=== PATIENT | female | born 1990 | race Caucasian/White ===

== ENCOUNTER 2020-08-11 15:25 | Emergency (ER) | payer OTHER ==
--- NOTE | 2020-08-11 16:55 | ER Document Report ---
ED Medical Screen (RME) - General Chief Complaint: Leg Pain Stated Complaint: LEFT LEG PAIN Time Seen by Provider: 08/11/20 16:46 - HPI Notes: 08/11/20 16:53 30-year-old female with a medical history of at least 7 pulmonary embolisms in her right lung and too many to count in her left due to having lupus anticoagulant disorder as well as multiple DVTs presents to the emergency room for left lower leg swelling and pain after she was on a 12-hour car ride 6 days ago and ran out of her Lovenox 4 days ago as well as mild shortness of breath. Patient's menstrual cycle started today. Patient usually injects herself of Lovenox daily but ran out 4 days ago. She is visiting from [facility]. Denies any chest pain, nausea, vomiting, diarrhea. I have greeted and performed a rapid initial assessment of this patient. A comp rehensive ED assessment and evaluation of the patient, analysis of test results and completion of the medical decision making process will be conducted by additional ED providers. PHYSICAL EXAMINATION: GENERAL: Well-appearing, well-nourished and in no acute distress. CV: s1, s2 regular LUNGS: No respiratory distress Musculoskeletal: Normal range of motion NEUROLOGICAL: Normal speech, normal gait. SKIN: Warm, Dry, normal turgor, no rashes or lesions noted. Slight swelling to left lower extremity, distal pulses +2 bilaterally equally The patient was evaluated during a global COVID-19 pandemic and that diagnosis was suspected/considered upon their initial presentation. Their evaluation, treatment and testing was consistent with current guidelines for patients who present with complaints or symptoms and may be related to COVID-19. 08/11/20 16:54 - Related Data Allergies/Adverse Reactions: sulfamethoxazole [From Bactrim] Allergy (Intermediate, Verified 08/11/20 16:45) Facial swelling trimethoprim [From Bactrim] Allergy (Intermediate, Verified 08/11/20 16:45) Facial swelling Physical Exam - Vital signs Vitals: Temp Pulse Resp BP Pulse Ox 98.2 F 62 16 127/74 H 100 08/11/20 16:33 08/11/20 16:33 08/11/20 16:33 08/11/20 16:33 08/11/20 16:33 Course - Vital Signs Vital signs: Temp Pulse Resp BP Pulse Ox 98.2 F 62 16 127/74 H 100 12/29/20 16:33 08/11/20 16:33 08/11/20 16:33 08/11/20 16:33 08/11/20 16:33
[2020-08-11 18:14] LABS: ABSOLUTE EOSINOPHILS # (AUTO) 0.1 10^3/uL (0.0-0.6); ABSOLUTE MONOCYTES (AUTO) 0.4 10^3/uL (0.1-1.4); BASOPHILS % (AUTO) 0.7 % (0-2); EOSINOPHILS % (AUTO) 1.2 % (0-6); HEMATOCRIT 34.1 % (36.0-47.0); HEMOGLOBIN 11.9 g/dL (12.0-15.5); LYMPHOCYTES % (AUTO) 35.4 % (13-45); MEAN CORPUSCULAR HEMOGLOBIN 30.6 pg (27.0-33.4); MEAN CORPUSCULAR HGB CONC 34.8 g/dL (32.0-36.0); MEAN CORPUSCULAR VOLUME 88 fl (80-97); MONOCYTES % (AUTO) 7.9 % (3-13); PLATELET COUNT 244 10^3/uL (150-450); RED BLOOD COUNT 3.88 10^6/uL (3.72-5.28); SEGMENTED NEUTROPHILS % (AUTO) 54.8 % (42-78); TOTAL CELLS COUNTED % (AUTO) 100 %; WHITE BLOOD COUNT 5.6 10^3/uL (4.0-10.5)
[2020-08-11 18:26] LABS: APPEARANCE,URINE CLEAR; BILIRUBIN,URINE NEGATIVE (NEGATIVE); COLOR,URINE STRAW; GLUCOSE, URINE NEGATIVE (NEGATIVE); KETONES,URINE NEGATIVE (NEGATIVE); LEUKOCYTE ESTERASE,URINE NEGATIVE (NEGATIVE); NITRITE,URINE NEGATIVE (NEGATIVE); PROTEIN,URINE NEGATIVE (NEGATIVE); URINE SPECIFIC GRAVITY 1.013; UROBILINOGEN,URINE NEGATIVE mg/dL (<2.0)
[2020-08-11 18:33] LABS: ALBUMIN 4.4 g/dL (3.5-5.0); ALKALINE PHOSPHATASE 56 U/L (38-126); ANION GAP 7 (5-19); ASPARTATE AMINO TRANSFERASE 54 U/L (14-36); BILIRUBIN,DIRECT 0.1 mg/dL (0.0-0.4); BILIRUBIN,TOTAL 0.7 mg/dL (0.2-1.3); BLOOD UREA NITROGEN 14 mg/dL (7-20); CALCIUM 9.5 mg/dL (8.4-10.2); CARBON DIOXIDE 29 mmol/L (22-30); CHLORIDE 105 mmol/L (98-107); GLUCOSE 89 mg/dL (75-110); POTASSIUM 4.4 mmol/L (3.6-5.0); TOTAL PROTEIN 7.5 g/dL (6.3-8.2)
[2020-08-11 18:49] LABS: INTERNATIONAL RATION (INR) 1.15; PROTHROMBIN TIME 14.9 SEC (11.4-15.4)
[2020-08-11 18:50] LABS: PARTIAL THROMBOPLASTIN TIME 49.6 SEC (23.5-35.8)
--- NOTE | 2020-08-11 19:42 | RADIOLOGY REPORT (SQ) ---
EXAM DESCRIPTION: VENOUS BILATERAL LOWER IMAGES COMPLETED DATE/TIME: 08/11/2020 7:30 pm REASON FOR STUDY: hx DVTs/PEs,Left leg swelling,ran out of Lovenox. COMPARISON: None. TECHNIQUE: Dynamic and static hewitt scale and color images acquired of both lower extremity venous sy stems. Selected spectral images acquired with additional compression and augmentation maneuvers. Imag es stored on PACS. LIMITATIONS: None. FINDINGS: RIGHT LEG COMMON FEMORAL AND FEMORAL: Normal phasicity, compression and augmentation. No visualized echogenic m aterial on hewitt scale. No defects on color images. POPLITEAL: Normal compression and augmentation. No visualized echogenic material on hewitt scale. No de fects on color images. CALF VESSELS: Normal compression and augmentation. No visualized echogenic material on hewitt scale. No defects on color image. GSV AND SSV: Normal compression. No visualized echogenic material on hewitt scale. No defects on color images. ANY DEEP VENOUS INSUFFICIENCY: Not evaluated. ANY EVIDENCE OF POPLITEAL CYST: No. OTHER: No other significant finding. LEFT LEG COMMON FEMORAL AND FEMORAL: The common femoral vein and saphenous femoral junction remain patent. No nocclusive thrombus is seen from the level of the proximal femoral vein through to the distal poplite al vein. POPLITEAL: Nonocclusive thrombus is demonstrated. CALF VESSELS: Normal compression and augmentation. No visualized echogenic material on hewitt scale. No defects on color images. GSV AND SSV: Normal compression. No visualized echogenic material on hewitt scale. No defects on color images. ANY DEEP VENOUS INSUFFICIENCY: Not evaluated. ANY EVIDENCE POPLITEAL CYST: No. OTHER: No other significant finding. IMPRESSION: Nonocclusive thrombus is seen within the left femoral and popliteal veins. TECHNICAL DOCUMENTATION: JOB ID: [id number] 2010 [employer]- All Rights Reserved Reading location - IP/workstation name: [email or web address]
--- NOTE | 2020-08-11 21:02 | RADIOLOGY REPORT (SQ) ---
EXAM DESCRIPTION: CT CHEST ANGIOGRAPHY WITHOUT THEN WITH IV CONTRAST COMPLETED DATE/TME: 08/11/2020 20:17 CLINICAL HISTORY: 30 years, Female, DVTs/7 PE's, 12 hr car ride, +SOB, LLE swelling COMPARISON: None. TECHNIQUE: 75 mL Omnipaque 350. MIP reconstruction. Images stored on PACS. All CT scanners at this facility use dose modulation, iterative reconstruction, and/or weight based dosing when appropriate to reduce radiation dose to as low as reasonably achievable (ALARA). . FINDINGS: Normal size 26 mm main pulmonary artery. No evidence for central PE. Minimal partial PE in the right lower lobe segmental vessel. Series 3 image 67. Occupies a small portion of the lumen. No obvious additional PE. Aorta is unremarkable. Borderline heart size. No suspicious mediastinal adenopathy or pericardial effusion. No significant acute lung or pleural abnormalities minimal chronic appearing linear densities in the right lower lobe. IMPRESSION: 1. Tiny PE segmental right lower lobe vessel. Embolus occupies a very small portion of the pulmonary artery lumen. Appearance suggestive of chronicity. Available is a report of a CT angiogram from 12/27/2013 which described a similar finding. The old study is not available for comparison. There is no significant acute PE.
--- NOTE | 2020-08-11 21:36 | EKG REPORT ---
SEVERITY:- NORMAL ECG - SINUS RHYTHM : Confirmed by: Tony Tee MD 11-Aug-2020 21:35:44
--- NOTE | 2020-08-12 01:26 | ER Document Report ---
ED General - General Chief Complaint: Leg Swelling Stated Complaint: LEFT LEG PAIN Time Seen by Provider: 08/11/20 16:46 Mode of Arrival: Ambulatory Information source: Patient Notes: Patient presents to the ER for evaluation of left lower extremity pain and swelling that began after a 12-hour car ride approximately 6 days ago. The patient states she typically takes Lovenox 100 mg daily but is currently on a trip and ran out of her prescription. She states she has a known clotting disorder and has had numerous PEs and DVTs in the past. She lives in [place], [place] and will return tomorrow. The patient does state that she has noticed some mild shortness of breath but currently has no shortness of breath. She also denies chest pain. She denies fever. She denies cough or congestion. She denies nausea or vomiting. Nursing notes reviewed and past medical, social, and family histories reviewed and validated. TRAVEL OUTSIDE OF THE [place] IN LAST 30 DAYS: No - Related Data Allergies/Adverse Reactions: sulfamethoxazole [From Bactrim] Allergy (Intermediate, Verified 08/11/20 16:45) Facial swelling trimethoprim [From Bactrim] Allergy (Intermediate, Verified 08/11/20 16:45) Facial swelling Home Medications: lovenox 100mg Subtcut daily, last dose 4 days ago. Past Medical History - General Information source: Patient - Social History Smoking Status: Never Smoker Chew tobacco use (# tins/day): No Frequency of alcohol use: None Drug Abuse: None Lives with: Family Family History: Reviewed & Not Pertinent Patient has suicidal ideation: No Patient has homicidal ideation: No - Past Medical History Cardiac Medical History: Reports: Other - Multiple DVTs, Pulmonary Medical History: Reports: Other - Multiple PEs EENT Medical History: Reports: None Neurological Medical History: Reports: None Endocrine Medical History: Reports: None Renal/ Medical History: Reports: None Malignancy Medical History: Reports: None GI Medical History: Reports: None Musculoskeletal Medical History: Reports None Skin Medical History: Reports None Psychiatric Medical History: Reports: None Traumatic Medical History: Reports: None Infectious Medical History: Reports: None Past Surgical History: Reports: Hx Nose Surgery - septal, Hx Orthopedic Surgery - rt knee meniscus, Hx Vascular Surgery - thrombectomy, clot removals pe - Immunizations Immunizations up to date: Yes Hx Diphtheria, Pertussis, Tetanus Vaccination: Yes Review of Systems - Review of Systems Notes: Constitutional: Negative for fever. HENT: Negative for sore throat. Eyes: Negative for visual changes. Cardiovascular: Negative for chest pain. Respiratory: Positive for shortness of breath. Gastrointestinal: Negative for abdominal pain, vomiting or diarrhea. Genitourinary: Negative for dysuria. Musculoskeletal: Negative for back pain. Positive for left leg pain. Skin: Negative for rash. Neurological: Negative for headaches, weakness or numbness. 10 point ROS negative except as marked above and in HPI. Physical Exam - Vital signs Vitals: Temp Pulse Resp BP Pulse Ox 98.2 F 62 16 127/74 H 100 08/11/20 16:33 08/11/20 16:33 08/11/20 16:33 08/11/20 16:33 08/11/20 16:33 - Notes Notes: CONSTITUTIONAL: Well appearing. No acute distress. SKIN: Warm, dry, and intact without rash EYES: Extraocular movements are grossly intact, clear conjunctiva HENT: Normocephalic, atraumatic, moist mucus membranes NECK: No obvious swelling, normal range of motion PULMONARY: Normal chest rise and fall. Breath sounds clear and equal bilaterally. No respiratory distress or stridor CARDIOVASCULAR: Regular rate. No murmurs, rubs, gallops. Distal extremities are warm and well perfused. ABDOMINAL: Soft, nontender NEUROLOGIC: Normal speech, moves all extremities. MUSCULOSKELETAL: No gross deformities. There is mild tenderness palpation of the posterior aspect of the left lower extremity. No significant swelling noted. PSYCHIATRIC: Normal mood and affect Course - Re-evaluation Re-evalutation: 08/12/20 01:35 Rechecked patient who has responded well to treatment in the ER. Discussed with patient: results, diagnosis, treatment plan, and need for follow-up. Return to the emergency department warnings were given. All questions and concerns were addressed. The plan is agreed with and understood. Patient is stable and ready for discharge. - Vital Signs Vital signs: Temp Pulse Resp BP Pulse Ox 98.2 F 62 16 127/74 H 100 08/11/20 16:33 08/11/20 16:33 08/11/20 16:33 08/11/20 16:33 08/11/20 16:33 - Laboratory Results Result Diagrams: 08/11/20 17:40 08/11/20 17:40 Laboratory Results Interpreted: 08/11/20 08/11/20 08/11/20 17:40 17:40 17:40 Hgb 11.9 L Hct 34.1 L APTT 49.6 H AST 54 H Urine Blood 08/11/20 17:40 Hgb Hct APTT AST Urine Blood MODERATE H Critical Laboratory Results Reviewed: No Critical Results - Radiology Results Critical Radiology Results Reviewed: Yes Attending or Supervising Physician who Reviewed Radiology: FELIPA ALEXANDER Discharge - Discharge Clinical Impression: Left leg DVT Qualifiers: Affected thrombotic vein of extremity: unspecified lower extremity distal vein Chronicity: chronic Qualified Code(s): I82.5Z2 - Chronic embolism and thrombosis of unspecified deep veins of left distal lower extremity Chronic pulmonary embolism Qualifiers: Pulmonary embolism type: unspecified Acute cor pulmonale presence: without acute cor pulmonale Qualified Code(s): I27.82 - Chronic pulmonary embolism Condition: Stable Disposition: HOME, SELF-CARE Instructions: DVT Outpatient Treatment ([facility]) Additional Instructions: Follow-up with your primary care doctor as soon as you return home. Prescriptions: Enoxaparin Sodium [Lovenox Inj 100 mg/1 ml Disp.syrin] 100 mg SUBCUT DAILY #30 disp.syrin
[2020-08-12] MEDS ORDERED: ENOXAPARIN SODIUM INJ 100 MG/1 ML DISP.SYRIN SUBCUT ONE (01:46)
[2020-08-12 01:56] VITALS: BP 128/73
== END 2020-08-12 01:54 | disposition home or self-care (01) ==
LOC: ER 15:25
DX: I82.532 Chronic embolism and thrombosis of left popliteal vein (principal); I82.412 Acute embolism and thrombosis of left femoral vein; I27.82 Chronic pulmonary embolism; Z88.1 Allergy status to other antibiotic agents
CPT/HCPCS: 93005; 99285; 96372; 36415; 84702; 85025; 85610; 85730; 80053; 81001; 84484; 93970; 71275; 93010; J1650